=== PATIENT | female | born 1990 | race Two or more races ===

== ENCOUNTER 2018-06-14 12:15 | Observation (INO) | payer MEDICAID, OTHER ==
[2018-06-14 14:38] LABS: Basophils # (auto) 0 uL; Basophils % (auto) 0.2 % (0.0-2.0); Eosinophils # (auto) 0.1 uL; Eosinophils % (auto) 0.9 % (0.0-7.0); Hematocrit 43.2 % (36.0-46.0); Hemoglobin 14.5 g/dL (12.2-16.2); Lymphocytes # (auto) 1.4 uL; Mean Corpuscular Hemoglobin 30.2 pg (28.0-32.0); Mean Corpuscular Hgb Conc. 33.6 g/dL (32.0-36.0); Monocytes # (auto) 0.7 uL; Monocytes % (auto) 6.8 % (0.0-12.0); Neutrophils # (auto) 8.1 uL; Neutrophils % (auto) 78.1 % (37.0-80.0); Platelet Count (auto) 257 10^3/uL (140-450); Red Blood Cells 4.79 10^6/uL (4.0-5.20); Red Cell Distribution Width 13.5 % (11.8-14.3); White Blood Cell 10.4 10^3/uL (4.4-10.8)
[2018-06-14 14:41] LABS: Urine WBC None Seen /hpf (0 - 5)
[2018-06-14 15:00] LABS: Albumin 2.9 g/dL (3.4-5.0); Calcium 9.5 mg/dL (8.5-10.1); INR 0.84 (0.9-1.15); Partial Thromboplastin Time 26.1 sec (23.78-33.04); Potassium 4.4 mmol/L (3.5-5.1); Prothrombin Time 9.1 sec (9.27-12.13)
[2018-06-14 15:02] LABS: Bilirubin, Total 0.2 mg/dL (0.2-1.0)
[2018-06-14 15:10] LABS: Urine Amorphous Crystal MOD /hpf (None Seen); Urine Bacteria NONE SEEN /hpf (None Seen); Urine Blood Negative /uL (Negative); Urine Specific Gravity 1.015 (1.001-1.035)
[2018-06-15 09:32] LABS: RPR Non Reactive (Non Reactive)
== END 2018-06-14 16:15 | disposition home or self-care (01) | DRG 566 ==
LOC: LDRP 12:15
PROVIDERS: ADMIT Specialist; ATTEND Specialist
DX: O48.0 Post-term pregnancy (principal); Z3A.40 40 weeks gestation of pregnancy
CPT/HCPCS: 36415; 59025; 76805; 76818; 80053; 81001; 81002; 85025; 85610; 85730; 86592; G0378

== ENCOUNTER 2018-06-15 09:35 | Observation (INO) | payer MEDICAID | END 2018-06-15 12:37 | disposition home or self-care (01) | DRG 566 | LOC: INTOOBSV 09:35 → LDRP 09:35 | PROVIDERS: ADMIT Specialist; ATTEND Specialist | DX: O48.0 Post-term pregnancy (principal); Z3A.40 40 weeks gestation of pregnancy | CPT/HCPCS: 59025; 76815; 81002; G0378 ==

== ENCOUNTER 2018-06-17 10:15 | Inpatient (IN) | payer MEDICAID ==
[~2018-06-17] VITALS: Ht 157.5 cm; Wt 57.2 kg
[2018-06-17] MEDS: LACTATED RINGER'S 1,000 ML IV SCH ×2 (10:40→18:40)
[2018-06-17] MEDS ORDERED: LACT. RINGERS/OXYTOCIN 20UNITS 1,000 ML IV SCH (10:40)
[2018-06-17] MEDS ORDERED: PHISODERM TOP SOLN 240ML BTL TOP PRN (10:45)
[2018-06-17] MEDS ORDERED: WITCH HAZEL-GLYCERIN PAD TOP PRN (10:45)
[2018-06-17] MEDS ORDERED: DERMOPLAST 60ML BOTTLE TOP PRN (10:45)
[2018-06-17] MEDS ORDERED: PENICILLIN G POT 5MIL/D5 50ML 50 ML IV ONE (10:45)
[2018-06-17] MEDS ORDERED: NALBUPHINE HCL 10 MG/1ml INJECTION IV PRN (10:45)
[2018-06-17] MEDS ORDERED: METHYLERGONOVINE MALEATE 0.2 MG/ML AMP IM PRN (10:45)
[2018-06-17] MEDS ORDERED: LIDOCAINE 2%HCL (LOCAL ANESTH.) INJ 20ML MDV ID ONE (10:45)
[2018-06-17 11:37] LABS: Basophils # (auto) 0 uL; Basophils % (auto) 0.1 % (0.0-2.0); Eosinophils # (auto) 0.1 uL; Eosinophils % (auto) 0.6 % (0.0-7.0); Hematocrit 42.5 % (36.0-46.0); Hemoglobin 14.2 g/dL (12.2-16.2); Lymphocytes # (auto) 1.3 uL; Lymphocytes % (auto) 16.4 % (10.0-50.0); Mean Corpuscular Hemoglobin 30.2 pg (28.0-32.0); Mean Corpuscular Hgb Conc. 33.5 g/dL (32.0-36.0); Mean Corpuscular Volume 90.3 fL (80.0-100.0); Monocytes # (auto) 0.4 uL; Neutrophils # (auto) 6.3 uL; Neutrophils % (auto) 77.9 % (37.0-80.0); Platelet Count (auto) 242 10^3/uL (140-450); Red Cell Distribution Width 13.3 % (11.8-14.3); White Blood Cell 8.1 10^3/uL (4.4-10.8)
[2018-06-17 11:49] LABS: Albumin 2.8 g/dL (3.4-5.0); Calcium 8.4 mg/dL (8.5-10.1); Potassium 3.2 mmol/L (3.5-5.1)
[2018-06-17 11:52] LABS: INR 0.86 (0.9-1.15); Partial Thromboplastin Time 25.7 sec (23.78-33.04); Prothrombin Time 9.3 sec (9.27-12.13)
[2018-06-17 11:55] LABS: Bilirubin, Total 0.2 mg/dL (0.2-1.0); Total Protein 6.8 g/dL (6.4-8.2)
[2018-06-17 11:58] LABS: Urine Bacteria FEW /hpf (None Seen); Urine Blood Negative /uL (Negative); Urine Mucus FEW (None Seen); Urine Specific Gravity 1.021 (1.001-1.035); Urine WBC 1 /hpf (0 - 5)
[2018-06-17 12:09] LABS: Alcohol, Urine < 3.0 mg/dL (0-5); Amphetamine Screen, Urine NEGATIVE (NEGATIVE); Barbiturate Scree,Urine NEGATIVE (NEGATIVE); Benzodiazephine Screen, Urine NEGATIVE (NEGATIVE); Cannabinoid Screen, Urine NEGATIVE (NEGATIVE); Cocaine Screen, Urine NEGATIVE (NEGATIVE); Opiate Scree,Urine NEGATIVE (NEGATIVE); Phencyclidine Screen, Urine NEGATIVE (NEGATIVE)
[2018-06-17] MEDS: PENICILLIN G POTASSIUM 2,500,000 UNITS in D5W 5% 50 ML IV SCH (17:10)
[2018-06-17] MEDS ORDERED: PREN-96 PO (17:44)
[2018-06-18] MEDS: PENICILLIN G POTASSIUM 2,500,000 UNITS in D5W 5% 50 ML IV SCH ×6 (01:23→22:12)
[2018-06-19] VITALS (8 sets, daily range): BP systolic 109–120; BP diastolic 60–81
[2018-06-19] MEDS ORDERED: fentaNYL CITRATE 100 MCG/2 ML VL ONE (01:41)
[2018-06-19] MEDS ORDERED: MORPHINE SULF(PF) 0.5MG/ML 10ML VIAL ONE (01:41)
[2018-06-19] MEDS ORDERED: ceFAZolin 1GM VL ONE (02:23)
[2018-06-19] MEDS ORDERED: OXYTOCIN 10 UNIT/ML 10ML VIAL ONE (02:23)
[2018-06-19] MEDS: LACTATED RINGER'S 1,000 ML IV SCH ×5 (02:40→09:56)
[2018-06-19] MEDS: PENICILLIN G POTASSIUM 2,500,000 UNITS in D5W 5% 50 ML IV SCH (02:45)
[2018-06-19] MEDS ORDERED: HYDROmorphone HCL 2 MG/ML VL IV PRN (03:00)
[2018-06-19] MEDS ORDERED: NALOXONE HCL 0.4 MG/ML VIAL IV PRN (03:00)
[2018-06-19] MEDS ORDERED: ONDANSETRON HCL 4 MG/2 ML VIAL IV PRN ×2 (03:00)
[2018-06-19] MEDS ORDERED: ceFAZolin 1GM/50ML 50 ML IV SCH (03:00)
[2018-06-19] MEDS ORDERED: diphenhdrAMINE HCL 50 MG/1 ML VL IV PRN (03:00)
--- NOTE | 2018-06-19 03:45 | NUR ---
Post Op for LDRP: Received patient from PACU via bed to room . Patient A/A/Ox4, abdominal binder and bilateral SCD's are in place, IV fluids placed on pump and infusing per order, incisional site dressing clean/dry/intact and Mayen Catheter to gravity draining clear yellow urine. Incentive Spirometer at bedside and instruction on proper use with return demonstration done by patient.
[2018-06-19] MEDS: ceFAZolin 1GM/50ML 50 ML IV SCH ×2 (09:55→17:58)
[2018-06-19] MEDS: KETOROLAC TROMETH 30 MG/ML 1ML VIAL IV SCH ×2 (12:48→17:55)
--- NOTE | 2018-06-19 13:08 | NUR ---
[facility] CATH REMOVED
--- NOTE | 2018-06-19 15:15 | NUR ---
Ambulation: Patient OOB with standby assistance by RN. Patient ambulated to bathroom with steady gait. Patient unable to void at this time. [facility] teaching provided with returned demonstration by patient. Clean gown provided and bed linen changed. Patient ambulated back to bed with steady gait and no distress noted.
[2018-06-20] MEDS: KETOROLAC TROMETH 30 MG/ML 1ML VIAL IV SCH ×2 (00:56→06:00)
[2018-06-20] MEDS: ceFAZolin 1GM/50ML 50 ML IV SCH (02:15)
[2018-06-20] MEDS: LACTATED RINGER'S 1,000 ML IV SCH (02:20)
[2018-06-20 03:00] VITALS: BP 118/68
--- NOTE | 2018-06-20 06:25 | NUR ---
REPORT: REPORT RECEIVED FROM LGSW RN TO RESUME CARE OF PT.
[2018-06-20 07:00] VITALS: BP 114/76
[2018-06-20 07:18] LABS: Basophils # (auto) 0 uL; Basophils % (auto) 0.1 % (0.0-2.0); Eosinophils # (auto) 0.1 uL; Eosinophils % (auto) 0.4 % (0.0-7.0); Hematocrit 35.8 % (36.0-46.0); Hemoglobin 11.9 g/dL (12.2-16.2); Lymphocytes # (auto) 2.6 uL; Lymphocytes % (auto) 16.8 % (10.0-50.0); Mean Corpuscular Hemoglobin 30.1 pg (28.0-32.0); Mean Corpuscular Hgb Conc. 33.4 g/dL (32.0-36.0); Mean Corpuscular Volume 90.1 fL (80.0-100.0); Monocytes # (auto) 1.5 uL; Monocytes % (auto) 9.4 % (0.0-12.0); Neutrophils # (auto) 11.6 uL; Neutrophils % (auto) 73.3 % (37.0-80.0); Platelet Count (auto) 241 10^3/uL (140-450); Red Blood Cells 3.97 10^6/uL (4.0-5.20); Red Cell Distribution Width 13.7 % (11.8-14.3); White Blood Cell 15.8 10^3/uL (4.4-10.8)
[2018-06-20] MEDS ORDERED: SIMETHICONE 80 MG CHEWABLE TABLET PO PRN (08:00)
[2018-06-20] MEDS ORDERED: HYDROcodone-ACET 5/325MG TAB PO PRN ×2 (08:00)
[2018-06-20] MEDS ORDERED: TETANUS-DIPTH-ACEL PERTUSSIS 0.5ML SYRG IM ONE (08:00)
--- NOTE | 2018-06-20 09:00 | NUR ---
MD VISIT: DR. NICHOLS IN AT BEDSIDE. UPDATED ON PT STATUS AND AWARE OF ALL CURRENT FINDINGS. NO NEW ORDERS RECEIVED AT TIME. CONTINUE CARE FOR SHIFT.
[2018-06-20] MEDS: DOCUSATE SOD 100 MG CAP PO SCH ×2 (10:01→22:20)
--- NOTE | 2018-06-20 10:30 | NUR ---
FAMILY: FAMILY HERE AT BEDSIDE WITH PATIENT.
[2018-06-20 11:00] VITALS: BP 112/72
--- NOTE | 2018-06-20 12:51 | NUR ---
UPDATE: EDUCATION HAS BEEN PROVIDED THROUGHOUT SHIFT THUS FAR FOR . PT DOES VERBALIZE UNDERSTANDING, ALL QUESTIONS AND CONCERNS PROVIDED AND UPON BABY, THE BABY APPEARS TO HAVE A GOOD LATCH WITH AUDIBLE SUCKS AND SWALLOWS. NO NEEDS IDENTIFIED AT TIME. CALL LIGHT REMAINS IN PLACE FOR PATIENT USE IF NEEDED. PT HAS ALSO AMBULATED TO RESTROOM SEVERAL TIMES THROUGHOUT DAY THUS FAR AND TOLERATED WELL WITH VOIDING CLEAR YELLOW URINE.
[2018-06-20 15:00] VITALS: BP 119/68
--- NOTE | 2018-06-20 18:15 | NUR ---
REPORT: REPORT GIVEN TO PROFESSOR OF VIOLIN RN TO RESUME CARE OF PT.
[2018-06-20 19:15] VITALS: BP 114/71
[2018-06-20 23:00] VITALS: BP 118/98
[2018-06-21 03:00] VITALS: BP 132/82
[2018-06-21] MEDS: IBUPROFEN 800 MG TAB PO PRN ×2 (03:06→15:01)
[2018-06-21 07:00] VITALS: BP 107/69
[2018-06-21] MEDS: DOCUSATE SOD 100 MG CAP PO SCH ×2 (10:00→23:53)
--- NOTE | 2018-06-21 10:25 | NUR ---
report given to tarsha downey rn patient in stable condition.
--- NOTE | 2018-06-21 10:25 | NUR ---
PT REPORT RECEIVED FROM Yris ZEPEDA RN ON STABLE PATIENT, ASSUMING CARE.
[2018-06-21 11:12] VITALS: BP 113/76
[2018-06-21 15:20] VITALS: BP 105/65
[2018-06-21 19:00] VITALS: BP 119/63
[2018-06-21 22:42] VITALS: BP 122/73
[2018-06-22] MEDS: IBUPROFEN 800 MG TAB PO PRN (00:49)
[2018-06-22 02:59] VITALS: BP 116/64
[2018-06-22 07:00] VITALS: BP 112/69
--- NOTE | 2018-06-22 07:45 | NUR ---
Jerica Platt [employer] Recapper made rounds with PREET Dobson. Toño Platt removed herman and placed steri strips to site. Incision clean, dry. No redness, ecchmosis, edema, drainage, edges well approximated. Pt tolerated well.
[2018-06-22] MEDS: DOCUSATE SOD 100 MG CAP PO SCH (10:00)
--- NOTE | 2018-06-22 10:20 | NUR ---
Discharge: Discharge instructions given as ordered. Pt encouraged to follow up with UPSETTER HELPER as instructed. All questions and concerns addressed. Patient verbalized understanding. Medication reconciliation completed and copy given to patient. All required/requested vaccines given and copies of vaccinations given to patient. Patient encouraged to prepare to depart unit.
[2018-06-22 11:00] VITALS: BP 110/65
--- NOTE | 2018-06-22 11:55 | NUR ---
Discharge: Patient taken to vehicle via wheelchair with all personal belongings, accompanied by staff and family member. No distress noted at time of departure, no adverse changes in status since initial assessment.
== END 2018-06-22 11:55 | disposition home or self-care (01) | DRG 540 ==
LOC: LDRP 10:15
PROVIDERS: ADMIT Specialist; ATTEND Specialist
PROC: 3E0P7VZ Introduction of Hormone into Female Reproductive, Via Natural or Artificial Opening (ICD-10-PCS; 2018-06-19)
PROC: 10903ZC Drainage of Amniotic Fluid, Therapeutic from Products of Conception, Percutaneous Approach (ICD-10-PCS; 2018-06-19)
PROC: 10D00Z1 Extraction of Products of Conception, Low, Open Approach (ICD-10-PCS; principal; 2018-06-19 01:36)
DX: O48.0 Post-term pregnancy (principal); O61.9 Failed induction of labor, unspecified; Z37.0 Single live birth; Z3A.41 41 weeks gestation of pregnancy; O76 Abnormality in fetal heart rate and rhythm complicating labor and delivery
CPT/HCPCS: 36415; 51702; 59025; 80053; 80307; 81001; 81002; 85025; 85610; 85730; 86762; 86850; 86900; 86901; 87340; 90715; 94762; 96361; 96365; 96366; G0378; J0690; J1885; J2540; J2590; J7060